=== PATIENT | male | born 1975 | race Two or more races ===

== ENCOUNTER 2020-07-23 00:07 | Outpatient (CLI) | payer OTHER | END 2020-07-23 00:08 | disposition home or self-care (01) | LOC: PPH VACUNA 00:07 | DX: Z23 Encounter for immunization (principal) ==

== ENCOUNTER 2020-08-13 13:45 | Outpatient (CLI) | payer OTHER | END 2020-08-13 13:55 | disposition home or self-care (01) | LOC: PPH VACUNA 13:45 | DX: Z23 Encounter for immunization (principal) ==

== ENCOUNTER 2024-08-12 13:48 | Outpatient (CLI) | payer OTHER | END 2024-08-12 13:56 | disposition home or self-care (01) | LOC: RAD 13:48 | PROVIDERS: ATTEND Orthopaedic Surgery Sports Medicine | DX: Z01.818 Encounter for other preprocedural examination (principal) ==

== ENCOUNTER 2024-08-12 14:22 | Outpatient (CLI) | payer OTHER | END 2024-08-12 14:24 | disposition home or self-care (01) | LOC: EKG 14:22 | PROVIDERS: ATTEND Orthopaedic Surgery Sports Medicine | DX: I10 Essential (primary) hypertension (principal) ==

== ENCOUNTER 2024-08-19 05:44 | Day surgery (SDC) | payer OTHER ==
[2024-08-14 11:53] VITALS: BP 148/78
[~2024-08-19] VITALS: Ht 177.8 cm; Wt 78.5 kg
[2024-08-19] MEDS ORDERED: CEFAZOLIN SODIUM 1,000 MG VIAL ONE ×2 (06:52→12:08)
[2024-08-19] MEDS ORDERED: BUPIVACAINE HCL/MPF 0.5% 30ML VIAL ONE (07:04)
[2024-08-19] MEDS ORDERED: MEPERIDINE HCL/PF 25 MG/ML VIAL IM PRN (09:30)
[2024-08-19] MEDS ORDERED: CEFAZOLIN SODIUM 1,000 MG VIAL IV ONE (09:30)
[2024-08-19] MEDS ORDERED: PROMETHAZINE HCL 25 MG/ML AMPUL IM PRN (09:30)
[2024-08-19] MEDS ORDERED: TRAM1TAB98 PO (09:36)
[2024-08-19] MEDS ORDERED: DUI500 PO (09:37)
[2024-08-19] MEDS ORDERED: CEFADROXIL 500 MG CAPSULE PO SCH (21:00)
== END 2024-08-19 12:40 | disposition home or self-care (01) ==
LOC: CIR.AMB 05:44
PROVIDERS: ATTEND Orthopaedic Surgery Sports Medicine
DX: M23.251 Derangement of posterior horn of lateral meniscus due to old tear or injury, right knee (principal); M23.51 Chronic instability of knee, right knee; M67.51 Plica syndrome, right knee; M22.41 Chondromalacia patellae, right knee; M65.861 Other synovitis and tenosynovitis, right lower leg; M17.11 Unilateral primary osteoarthritis, right knee